=== PATIENT | female | born 1980 | race Caucasian/White ===

== ENCOUNTER 2017-12-25 16:04 | Observation (INO) | payer BC ==
[2017-12-25 16:10] VITALS: BP 99/53; RESP 18
--- NOTE | 2017-12-25 16:40 | EDPHY ---
H & P Smoking Status: Never smoked Time Seen by Provider: 12/25/17 16:14 HPI/ROS: CHIEF COMPLAINT: Left shoulder pain HISTORY OF PRESENT ILLNESS: 37-year-old female, , currently 29 weeks , arrives via private vehicle complaining of acute left shoulder pain after she was hiking, slipped, landed on her left shoulder. No head injury. Reproducible left shoulder pain with range of motion. She also notes that since being triage she went to the bathroom and had a small amount of spotting in her underwear. No passage of clots. No abdominal pain or cramping. No direct abdominal trauma. PRIMARY CARE PROVIDER:In [place] REVIEW OF SYSTEMS: A ten point review of systems was performed and is negative with the exception of the items mentioned in the HPI PAST MEDICAL/SURGICAL HISTORY: currently 29 weeks SOCIAL HISTORY: Visiting from [place] PHYSICAL EXAM 1) GENERAL: Well-developed, well-nourished, alert and oriented. Appears uncomfortable Answering questions appropriately. 2) HEAD: Normocephalic, atraumatic 3) HEENT: Pupils equal, round, reactive to light bilaterally. Negative Horners. Nasopharynx, oropharynx, clear. No deformity or angulation of nose. No septal hematoma. No rhinorrhea. No oral trauma. Ears bilaterally with normal tympanic membranes. No hemotympanum. No fluid or blood in the external auditory canal. No raccoon eyes. No Miranda sign. Teeth are normally aligned with no gross malocclusion, TMJ bilaterally nontender, facial bones nontender including the zygomatic arch, maxilla mandible. 4) NECK: No cervical collar is on. Posterior cervical spine is nontender, no stepoff, no effusion. Full range of motion which does not elicit any midline cervical spine pain, no posterior midline tenderness, no step-off. 5) LUNGS: Clear to auscultation bilaterally, no wheezes, no rhonchi, no retractions. No obvious signs of trauma. No chest wall pain. No flaring, no grunting. Moving symmetrically. No crepitus. 6) HEART: [Regular rate and rhythm, 7) ABDOMEN: Gravid. No guarding, no rebound, no focal tenderness, no peritoneal signs, no signs of trauma, no ecchymosis 8) MUSCULOSKELETAL: Left upper extremity: No visible trauma or step-off. Tender to palpation anterolateral aspect of the left shoulder, reproducible exacerbated with range of motion. Proximally and distally nontender neurovascular intact distally. Otherwise, Moving all extremities, no focal areas of tenderness, no obvious trauma. 9) BACK: No midline vertebral tenderness, no fluctuance, no step-off, no obvious trauma, no visual or palpable abnormality. 10) SKIN: No laceration. No abrasion DIFFERENTIAL DIAGNOSIS: In no particular include but limited to fracture, dislocation, sprain, strain (Mercedez Triana) Constitutional: Initial Vital Signs Temperature (C) 36.7 C 12/25/17 16:07 Heart Rate 62 12/25/17 16:07 Respiratory Rate 18 12/25/17 16:07 Blood Pressure 99/53 L 12/25/17 16:07 O2 Sat (%) 97 12/25/17 16:07 O2 Delivery Mode Room Air Allergies/Adverse Reactions: No Known Allergies Allergy (Unverified 12/25/17 16:07) Home Medications: Medication Instructions Recorded 12/25/17 Prozac 20 MG (*) 12/25/17 MDM/Departure - MDM Imaging Results: Images reviewed myself (Mercedez Triana) Procedures: Procedure: Splint An upper extremity sling was applied by ER wardrobe technician. After application of the splint I returned and re-examined the patient. The splint was adequately immobilizing the joint and distal to the splint the patient's circulation and sensation were intact. Patient shows no signs of compartment syndrome. Was given orthopedic precautions. (Mercedez Triana) Medications Given: Discontinued Medications Hydrocodone Bitart/Acetaminophen ([place] 5/325) 1 - 2 tab PO Q4H PRN PRN Reason: Pain, Moderate Able to Take PO Stop: 01/04/18 19:33 Last Admin: 12/25/17 19:57 Dose: 1 tab Hydrocodone Bitart/Acetaminophen ([place] 5/325mg Prepack#6) 1 btl TAKEHOME EDNOW ONE Stop: 12/25/17 21:15 Last Admin: 12/25/17 22:04 Dose: 1 btl Lactated Ringer's (Lr) 1,000 mls @ 125 mls/hr IV CONT NISREEN Stop: 06/23/18 18:29 Last Admin: 12/25/17 19:59 Dose: 1,000 mls Terbutaline Sulfate ([place]) 0.25 mg SC ONCE ONE Stop: 12/25/17 18:12 Last Admin: 12/25/17 22:05 Dose: Not Given ED Course/Re-evaluation: Patient was re-evaluated with serial examinations, her abdomen was shielded from x-rays prior to imaging. Consultation with Orthopedics Dr. Dave Hawthorne at 5:15 p.m. I reviewed the patient's x-rays, recommended sling. Patient is visiting from [place], she will follow up with orthopedic surgeon in [place], given copies of her x-rays. Discussed her imaging results, she was placed in a sling. In addition, She notes new onset mild spotting in her underwear once in the ER. Feels her baby moving as usual. She is visiting from out of town. Plan will be discharged from the ER or, sent patient to Labor and delivery for monitoring. She is agreeable with this. Care of patient under supervision of secondary supervising physician Dr Wooten with whom I discussed case (Mercedez Triana) I did not see this patient while she was in the emergency department. However her care it was discussed with the PA while the patient was in the department. I agree with treatment plan and management (Vince Wooten) - Depart Disposition: Home, Routine, Self-Care Clinical Impression: Fracture of neck of left humerus Qualifiers: Encounter type: initial encounter Fracture type: closed Qualified Code(s): S42.212A - Unspecified displaced fracture of surgical neck of left humerus, initial encounter for closed fracture Condition: Good
[2017-12-25 17:52] VITALS: PULSE 68; TEMP 98.2; O2SAT 98
[2017-12-25] MEDS ORDERED: TERBUTALINE SULFATE 1 MG/ML VIAL SC ONE (18:11)
[2017-12-25] MEDS ORDERED: LR 1,000 ML IV SCH (18:30)
[2017-12-25] MEDS ORDERED: HYDROCODONE/APAP 5/325 TAB PO PRN (19:34)
[2017-12-25] MEDS ORDERED: ACETAMINOPHEN 325 MG TAB PO PRN (19:35)
--- NOTE | 2017-12-25 19:48 | PDGENHP ---
History and Physical - Chief Complaint fall - History of Present Illness Patient is a 37 year old at 29 1/7 weeks MARILYN 03[birth year] who presents s/p fall this afternoon resulting in a fractured left clavicle. Patient states went hiking and was about 50 feet from the car and fell. No direct abdominal trauma. AMA history of depression and no issues now. +FM had an episode vaginal spotting. No leaking of fluid History Information - Allergies/Home Medication List Allergies/Adverse Reactions: No Known Allergies Allergy (Unverified 12/25/17 16:07) Home Medications: 12/25/17 [Last Taken Unknown] Prozac 20 MG (*) 12/25/17 [Last Taken Unknown] I have personally reviewed and updated: medical history - Social History Smoking Status: Never smoked Review of Systems Review of Systems: Physical Exam Physical Exam: Temp Pulse Resp BP Pulse Ox 36.8 C 68 18 99/53 L 98 12/25/17 17:50 12/25/17 17:50 12/25/17 17:50 12/25/17 16:07 12/25/17 17:50 Cardiovascular: regular rate and rhythym, no murmur, rub, or gallop Respiratory: no respiratory distress, no rales or rhonchi Gastrointestinal: normoactive bowel sounds, soft, non-tender abdomen, other ( Gravid no abdominal trauma or bruising) Skin: warm, normal color Musculoskeletal: full muscle strength, no muscle tenderness Neurologic: AAOx3, sensation intact bilaterally Psychiatric: interacting appropriately, not anxious Lab Data & Imaging Review Ultrasound bynum IUP CL 3.1-3.3 cm vertex posterior placenta FHT 125 moderate variability + accelerations XRAY fracture of the left humeral neck Assessment & Plan Assessment: Fracture of neck of left humerus (Acute) Eval for labor KB Blood type Pain medication IVF Plan: Observation Improvement with IVF Normal Cervical length 3.1-3.3 cm Discharge home Follow up this week with clinic in [place]
[2017-12-25] MEDS ORDERED: HYDROCOD/APAP 5/325 PREPACK#6 BTL TAKEHOME ONE (21:14)
--- NOTE | 2017-12-26 06:50 | OBGCSDC ---
General Delivery Information - General Info : 1 Para: 0 Abortions: 0 Admission Date: 12/25/17 Labs: Patient ABO/Rh A POSITIVE 12/25/17 19:22 - Hospital Course Intrapartum: 12/26/17 06:48 fracture of Humeral head and 30 weeks observed on labor and delivery negative KB Data MARILYN: 03[birth year] Gestational Age: 29 week(s) and 2 day(s) Discharge Information - Discharge Information Condition: Good Instruction/Follow Up: One Week
== END 2017-12-25 22:33 | disposition home or self-care (01) ==
LOC: FLD 18:05
PROVIDERS: ADMIT Obstetrics & Gynecology; ATTEND Obstetrics & Gynecology
DX: O9A.213 Injury, poisoning and certain other consequences of external causes complicating pregnancy, third trimester (principal); S42.212A Unspecified displaced fracture of surgical neck of left humerus, initial encounter for closed fracture; S42.392A Other fracture of shaft of left humerus, initial encounter for closed fracture; Z3A.29 29 weeks gestation of pregnancy; W18.40XA Slipping, tripping and stumbling without falling, unspecified, initial encounter; Y93.01 Activity, walking, marching and hiking
CPT/HCPCS: 59025; 73030; 76815; G0378